=== PATIENT | female | born 1960 | race Caucasian/White ===

== ENCOUNTER 2017-11-29 05:43 | Day surgery (SDC) | payer BC, OTHER, SELFPAY ==
[2017-11-29] VITALS (10 sets, daily range): BP systolic 122–131; BP diastolic 67–96; PULSE 59–98; RESP 16–18; TEMP 36.3–37.1; O2SAT 93–100; BMI 26.4
--- NOTE | 2017-11-29 | LYMN_PTH ---
PATIENT: ADELAIDA HARO LOC: [facility] [place] U#:[id number] AGE/SX: 57/F ROOM: RE11/29/[address]: Dr. Jose Rahman MD : 1960 BED: DIS: 11/29/2017 SPEC #: [id number] RECD: 11/29/17 09:13 STATUS: SHOSHANA STEVENS #: [id number] TITA: 11/29/17 00:[address]: Jose Rahman DEPT: SURGICAL PATHOLOGY RECD BY: Melinda Beebe ENTERED: 11/29/17 10:57 SP TYPE: LYMPH NODE OTHR DR: Out of Town Doctor Tissues: A - LYMPH NODE BIOPSY B - LYMPH NODE BIOPSY Procedures: Special Stain Group I Surgery Specimen Level IV Surgery Specimen Level V HEADER OPERATION: Excision submandibular gland, frozen section PRE-OP DIAGNOSIS: Chronic sialadenitis, dysphagia, history of malignant neoplasm of thyroid TISSUE SUBMITTED: A ? Right posterior cervical lymph node sent fresh in saline, B ? Right submandibular gland MICROSCOPIC DIAGNOSIS A. Right posterior cervical lymph node, biopsy: Reactive lymphoid hyperplasia. Flow cytometry study from [facility] shows no phenotypic evidence of non-Hodgkin lymphoma. B. Right submandibular gland: Salivary gland tissue with chronic inflammation. SJ:rg 12/02/17 COMMENT The specimen is evaluated at the time of touch imprint by Dr. Lindsey. Immediate Evaluation = Lymph node tissue. MICROSCOPIC DESCRIPTION Slides are reviewed. GROSS DESCRIPTION A - Received fresh for lymphoma protocol labeled with the patient's name is a specimen designated posterior cervical lymph node. The specimen consists of an ovoid piece of christian soft tissue measuring 1.4 x 1 x 0.4 cm. The specimen is bisected and reveals christian-pink cut surfaces. Four touch imprints are prepared (two stained with Diff-Quick and two stained with H & E). A section is also submitted for flow cytometry study. The entire specimen is submitted in one cassette. B - Received in fixative is one container labeled with the patient's name and designated right submandibular gland. The specimen consists of an irregular glandular tissue weighing 6.4 gm and measuring 3.2 x 3 x 1.6 cm. The specimen is inked, serially sectioned and does not reveal any mass lesion. The entire specimen is submitted in five cassettes from end to another end. / BUCK:gavin 11/29/17 TC:5 CPT: 08571, 56594, 96391
[2017-11-29] MEDS: Bacitracin 500 UNITS/GM PACKET (08:19)
--- NOTE | 2017-11-29 09:31 | OP.PCM_ITS ---
Problem List (1) Chronic sialoadenitis Status: Acute (2) Cervical lymphadenopathy Status: Acute Report of Operation Date of Procedure: 11/29/17 Pre-Operative Diagnosis: Chronci right sialadenitis of submandibular gland, right posterior cervical lymphadenopathy with history of metastatic papillary thyroid carcinoma Post-Operative Diagnosis: same Surgery/Procedure Performed:: Excision right submandibular gland, excision right deep cervical lymph node posterior triangle Description of Surgical Findings:: Sasha is a 57-year-old female presents for evaluation of persistent discomfort and swelling of the right submandibular gland. 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 She also had a persistently enlarged right posterior triangle cervical lymph node which caused her concern despite being stable on serial ultrasound and she requests this also be removed for definitive evaluation. Excision of the submandibular gland for relief of recurrent pain and swelling was offered and she was eager to proceed. The risks, alternatives, potential benefits, and complications were discussed at length and any questions answered to the patient and/or caregiver' s satisfaction. Witnessed informed consent was obtained in the office, and the patient and/or caregiver was agreeable to proceed. Procedure went as follows: The patient was identified in the preoperative holding and brought to the operating room she is placed under general anesthesia and intubated. When approached appropriate anesthesia was obtained, the patient was prepped and draped in usual sterile fashion. The planned and skin incisions were then injected with 1% lidocaine with 100,000 epinephrine for a total of 5 cc. Attention to the right posterior cervical lymph node was given first as follows. Through a 3 cm incision through her prior cervical lymphadenopathy incision the skin and subcutaneous tissues were sharply dissected with a 15 blade scalpel. The sternocleidomastoid was then identified and working posteriorly a 1.5 x 1.0 cm lymph node was identified. This was bluntly dissected from its surrounding capsule and the vascular contribution cauterized with bipolar cautery for hemostasis. This was then sent for pathologic evaluation as a fresh specimen. No bleeding was encountered and the wound was then closed deeply with interrupted 3-0 Vicryl suture followed by running subcuticular stitch of 5-0 Monocryl. This completed this portion of the procedure Attention was then turned to resection of the right submandibular gland. An incision was made 2 fingerbreadths below the angle of the mandible and using a 15 blade scalpel the skin and subcutaneous tissues were then sharply incised. The platysma was then encountered and again sharply incised. Dissection was then carried out low along the inferior aspect of the gland and the marginal mandibular branch of the facial nerve identified and preserved. Dissection of the submandibular gland was then carried out in a sub-capsular fashion. The intervening vasculature was clamped and ligated with 3-0 silk sutures and it was at its attachment superiorly at the ganglion and the submandibular duct each additionally ligated with silk suture. The gland was then removed and sent as pathologic specimen. The wound was then irrigated with saline solution and no significant bleeding was encountered and thus was closed without a drain deeply with interrupted 3-0 Vicryl sutures followed by a subcuticular stitch of 5-0 Monocryl for the skin. Bacitracin ointment was then applied and the patient returned to anesthesia where she was revived and extubated without complication having tolerated the procedure well. Type of Anesthesia:: General Anesthesiologist: Mart Mckeon Special Medications: none Specimen's removed: right deep posterior cervical lymph node, right submandubular gland Drains: none Estimated Blood Loss (mL): none Fluids Replaced: 1100 mL Grafts/Implants Used: none - Complications none - Admit VTE Documentation VTE Present on Admission: No VTE Mechan Device Prophylaxis: SCD's VTE Pharm Prophylaxis ordered?: No
--- NOTE | 2017-11-29 09:33 | DCINST_ITS ---
- Discharge Diagnoses Current Active Problems: Current Active and Chronic Problems Chronic sialoadenitis (Acute) Cervical lymphadenopathy (Acute) You will use the following diet at home:: Regular Discharge Activity: Return to Normal Activity, May not drive while taking narcotic pain medications. Call your doctor if your incision/area has: Increased Pain/ Swelling, Increased Redness, Swelling at the incision site Call your doctor if you observe: Fever of 101 or Higher, Uncontrolled pain Cleanse incision/area with: Soap & Water Additional Dressing/Incision Instructions:: Keep incisions dry for 48 hours Allergies/Adverse Reactions: Allergies erythromycin base Allergy (Verified 11/25/17 09:08) Vomiting Penicillins Allergy (Verified 11/25/17 09:08) Shortness of breath cefaclor [From Ceclor] Adverse Reaction (Verified 11/25/17 09:08) Hives codeine Adverse Reaction (Verified 11/25/17 09:08) Other morphine Adverse Reaction (Verified 11/25/17 09:08) Low blood pressure Medications to take at Discharge Aspirin [Aspirin, Baby] 81 mg PO DAILY@0800 11/25/17 Cyclobenzaprine [Flexeril] 5 mg PO TID PRN PRN 11/25/17 Levothyroxine [Synthroid] 150 mcg PO DAILY 11/25/17 Multivitamin [Daily Multiple Vitamin] 1 each PO DAILY 11/25/17 RX: Propranolol HCl 20 mg PO DAILY 11/25/17 Topiramate [Topamax] 100 mg PO DAILY 11/25/17 Zolpidem Tartrate [Ambien] 10 mg PO QHS 11/25/17 Primary Care Physician: [facility] ,Out of [Primary Care Provider] - Test Results: Test results from this visit will be discussed in further detail at your follow- up appointment, if applicable. Please Follow Up With: Jose Rahman MD When: 10 days
[2017-11-29] MEDS: Acetaminophen 325 MG Tablet 650 MG PO (11:35)
== END 2017-11-29 12:21 | disposition home or self-care (01) ==
LOC: SDC 05:44 → AC 05:46
PROVIDERS: Visit Provider Otolaryngology
PROC: (CPT 42440; principal; 2017-11-29 07:00)
DX: K11.23 Chronic sialoadenitis (principal); R13.10 Dysphagia, unspecified; G43.909 Migraine, unspecified, not intractable, without status migrainosus; H40.9 Unspecified glaucoma; Z79.82 Long term (current) use of aspirin; Z79.899 Other long term (current) drug therapy; Z85.850 Personal history of malignant neoplasm of thyroid
CPT/HCPCS: 00100; 38510; 42440; 88305; 88307; 88312; J7120; J2405